=== PATIENT | female | born 1990 | race Caucasian/White ===

== ENCOUNTER 2018-05-30 11:16 | Outpatient (CLI) | END 2018-05-30 11:17 | disposition home or self-care (01) | LOC: LAB 11:16 | PROVIDERS: ATTEND Family Medicine | DX: F39 Unspecified mood [affective] disorder (principal) | CPT/HCPCS: 36415; 80053; 80061; 83036; 85025 ==

== ENCOUNTER 2018-07-28 08:59 | Emergency (ER) ==
[2018-07-28] MEDS ORDERED: TENIVAC IM ONE (09:05)
[2018-07-28 09:08] VITALS: BP 129/76; TEMP 97.9; BMI 24.4
--- NOTE | 2018-07-28 09:11 | ED.PDOC ---
General ED Provider: Dr. ALEKSANDER MADDEN Chief Complaint: Puncture Wound Stated Complaint: puncture wound of left foot Time Seen by Physician: 09:00 Information Source: Patient Exam Limitations: No limitations Primary Care Provider: TOSHA LASSITER Nursing and Triage Documentation Reviewed and Agree: Yes Does patient meet sepsis criteria?: No System Inflammatory Response Syndrome: Not Applicable Sepsis Protocol: For patient's 13 years and over: Temp is 96.8 and below OR 101 and greater Pulse >90 BPM Resp >20/minute Acutely Altered Mental Status Are patient's symptoms suggestive of a new infection, such as: -Pneumonia -Skin, Soft Tissue -Endocarditis -UTI -Bone, Joint Infection -Implantable Device -Acute Abdominal Infection -Wound Infection -Meningitis -Blood Stream Catheter Infection -Unknown Skin Complaint Exam - Laceration/Lower Ext. Complaint/Exam Location of Injury: Left, Foot (steped on a nail) Mechanism of Injury: Puncture Onset/Duration: 1 day ago stepped on nail nail went through tennis shoes Symptoms Are: Still present Initial Severity: Mild Current Severity: Mild Aggravating: None Alleviating: None Associated Signs and Symptoms: Denies: Fever, Chills, Erythema, Numbness, Tingling Soles of Feet Picture: 1 - 2mm wound see photos Differential Diagnoses: Closed Fracture Review of Systems - Review Of Systems Constitutional: Reports: No symptoms Eyes: Reports: No symptoms Ears, Nose, Mouth, Throat: Reports: No symptoms Respiratory: Reports: No symptoms Cardiac: Reports: No symptoms GI: Reports: No symptoms : Reports: No symptoms Musculoskeletal: Reports: No symptoms Skin: Reports: Other (puncture wound left foot 2 mm) Neurological: Reports: No symptoms Endocrine: Reports: No symptoms Hematologic/Lymphatic: Reports: No symptoms All Other Systems: Reviewed and Negative Past Medical History - Past Medical History Previously Healthy: Yes Endocrine: Reports: None Cardiovascular: Reports: None Respiratory: Reports: None Hematological: Reports: None Gastrointestinal: Reports: None Genitourinary: Reports: None Neuro/Psych: Reports: None Musculoskeletal: Reports: None Cancer: Reports: None Last Menstrual Period: Today - Surgical History General Surgical History: Reports: None - Family History Family History: Reports: None - Social History Smoking Status: Current every day smoker Hx Substance Use: No Alcohol Screening: None - Immunizations Tetanus Shot up to Date: No Physical Exam - Physical Exam Appearance: Well-appearing, No pain distress, Well-nourished Eyes: SOMMER, EOMI, Conjunctiva clear ENT: Ears normal, Nose normal, Oropharynx normal Respiratory: Airway patent, Breath sounds clear, Breath sounds equal, Respirations nonlabored Cardiovascular: RRR, Pulses normal, No rub, No murmur GI/: Soft, Nontender, No masses, Bowel sounds normal, No Organomegaly Musculoskeletal: Normal strength, ROM intact, No edema, No calf tenderness Skin: Warm, Dry (puncture wound left foot) Neurological: Sensation intact, Motor intact, Reflexes intact, Cranial nerves intact, Alert, Oriented Psychiatric: Affect appropriate, Mood appropriate Critical Care Note - Critical Care Note Total Time (mins): 0 Course - Course Orders, Labs, Meds: Orders Category Date Time Status Tetanus and Diphtheria Tox/Pf [Tenivac] MEDS 07/28/18 09:05 Once 0.5 ml IM .ONCE ONE Medications Discontinued Medications Generic Name Dose Route Start Last Admin Trade Name Freq PRN Reason Stop Dose Admin Tetanus/Diphtheria Toxoids Adsorbed 0.5 ml 07/28/18 09:05 Tenivac IM 07/28/18 09:06 .ONCE ONE Vital Signs: Temp Pulse Resp BP Pulse Ox 07/28/18 08:59 97.9 F 77 16 129/76 98 Departure - Departure Time of Disposition: 09:12 Disposition: HOME SELF-CARE Discharge Problem: Wound Puncture wound of left foot Qualifiers: Encounter type: initial encounter Qualified Code(s): S91.332A - Puncture wound without foreign body, left foot, initial encounter Instructions: Puncture Wound (ED) Condition: Good Pt referred to PMD for follow-up: Yes IPMP verified?: No Additional Instructions: Please call your Family Physician as soon as possible to schedule a follow-up appointment. Prescriptions: Levofloxacin [Levaquin] 500 mg PO DAILY #5 tablet Allergies/Adverse Reactions: Allergies amoxicillin Allergy (Unverified 03/09/18 14:49) hives, anaphalaxia laytex Allergy (Intermediate, Uncoded 03/09/18 14:49) rash Home Medications: Ambulatory Orders Levofloxacin [Levaquin] 500 mg PO DAILY #5 tablet 07/28/18 Disposition Discussed With: Patient
== END 2018-07-28 10:14 | disposition home or self-care (01) ==
LOC: ED 08:59
DX: S91.332A Puncture wound without foreign body, left foot, initial encounter (principal); W45.0XXA Nail entering through skin, initial encounter; F17.210 Nicotine dependence, cigarettes, uncomplicated
CPT/HCPCS: 90471; 90714; 99283

== ENCOUNTER 2018-08-04 14:00 | Outpatient (RCR) ==
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
--- NOTE | 2018-07-24 12:40 | RS.OPPTDN ---
Subjective Date of Note: 07/24/18 Visit #: 2 Number of visits approved by Insurance: pending Date of Evaluation: 07/13/18 Payer Source: Medicaid Treatment Diagnosis: low back pain with radiculopathy, muscle weakness, Current Subjective/complaints:: Patient reports pain in lumbar spine 8/10 and no pain in right lower extremity *Precautions: h/o lumbar fusion - Treatment Modality: Electrical Stim Unattended Parameters/Method Applied: IFC 14 to 18 ma Treatment Area: lumbar spine Patient Position: Prone - Treatment Comments: moist heat concurrent e-stim to lumbar region - Heat/Cryotherapy Treatment: Hot Pack Interventions - Exercise/Activities/Manual Therapy Exercises/Activities: pt performed prone lying, prone on elbows, pelvic tilt, hamstring stretch, piriformis stretch. Total minutes of Exercise: 30 Manual Therapy: n/a HOME EXERCISE PROGRAM: pt given written HEP including: pelvic tilt, hamstring stretch, piriformis stretch, prone, prone on elbows. - Charges Timed Code Treatment Minutes: 30 Total Treatment Time: 58 Procedures billed for this date of service:: HP, E-stim unattended, ex x2 Assessment: Patient with decrease to radicular pain in R LE and with decreased LBP to 5/10 post tx Patient demonstrates compliance with HEP?: No (Patient reports not completing HEP.) Short Term Goals Goal #1: pt independent with initial HEP Goal to be met by: 08/04/18 Goal #2: Decrease pain in lumbar spine < 7/10 Goal to be met by: 08/04/18 Goal #3: Improve flexibility B hamstring and piriformis WFL's Goal to be met by: 08/04/18 Goal #4: Improve lumbar ROM WFL's Goal to be met by: 08/04/18 Senior Care Goals Goal #1: pt able to perform normal daily activities with less pain Goal to be met by: 08/18/18 Goal #2: Decreased reports of radicular pain into RLE Goal to be met by: 08/18/18 Goal #3: pt able to sleep >4 hours uninterrupted from pain Goal to be met by: 08/18/18 Plan Dates of Senior Care Goals: 08/18/18 Expiration date of current Insurance Approval:: 08/18/18 PLAN: continue with POC
--- NOTE | 2018-07-27 16:03 | RS.OPPTDN ---
Subjective Date of Note: 07/27/18 Visit #: 3 Number of visits approved by Insurance: 2-3x4 [employer] Date of Evaluation: 07/13/18 Payer Source: Medicaid Treatment Diagnosis: low back pain with radiculopathy, muscle weakness, Current Subjective/complaints:: Patient says she is hurting more after she has been at work all day. Does say treatment at last appt helped a lot and is only hurting at her coccyx. Denies any radicular pain. *Precautions: h/o lumbar fusion - Treatment Modality: Electrical Stim Unattended Parameters/Method Applied: IFC @ 14-17 max 20 mins to the lower lumbar paraspinals and superior gluts - Heat/Cryotherapy Treatment: Hot Pack Comments:: with estim Interventions - Exercise/Activities/Manual Therapy Exercises/Activities: pt performed prone lying, prone on elbows, alternate LE extension x 5. Supine: passive stretching for piriformis, figure 4, hamstring , lower trunk rotation. Began isometric hip add/abd in hooklying 2x5. Reviewed HEP and discussed proper body mechanics when able to perform while at work. Instructed in standing trunk extension throughout the day as possible. Total minutes of Exercise: 19 Manual Therapy: n/a HOME EXERCISE PROGRAM: pt given written HEP including: pelvic tilt, hamstring stretch, piriformis stretch, prone, prone on elbows. 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 She is experiencing pain at the coccyx region and just at the lower lumbar spine. She appears to be responding to treatment of modalities and therex performing them all today correctly and without difficulty. Only mild discomfort describing as stiffness at the L spine during extension exercises.She should benefit from further treatment of modalities and trunk stability/assisted stretching. Short Term Goals Goal #1: pt independent with initial HEP Goal to be met by: 08/04/18 Goal #2: Decrease pain in lumbar spine < 7/10 Goal to be met by: 08/04/18 Goal #3: Improve flexibility B hamstring and piriformis WFL's Goal to be met by: 08/04/18 Goal #4: Improve lumbar ROM WFL's Goal to be met by: 08/04/18 Medical Imaging Director Goals Goal #1: pt able to perform normal daily activities with less pain Goal to be met by: 08/18/18 Goal #2: Decreased reports of radicular pain into RLE Goal to be met by: 08/18/18 Goal #3: pt able to sleep >4 hours uninterrupted from pain Goal to be met by: 08/18/18 Plan Dates of Medical Imaging Director Goals: 08/18/18 Expiration date of current Insurance Approval:: 08/18/18 PLAN: Continue BIW to decrease back pain and continue to localize symptoms from the R LE
--- NOTE | 2018-08-01 15:04 | RS.OPPTDN ---
Subjective Date of Note: 08/01/18 Visit #: 4 Number of visits approved by Insurance: pending, 6-8 Date of Evaluation: 07/13/18 Payer Source: Medicaid Treatment Diagnosis: low back pain with radiculopathy, muscle weakness, Current Subjective/complaints:: Patient says previous treatment did help, but she just came from work again so her pain is elevated. She says it continues to be across the low back and no pain into the LEs. *Precautions: h/o lumbar fusion - Treatment Modality: Electrical Stim Unattended Parameters/Method Applied: IFC @ 19 ma x 20 mins to lumbar paraspinals Patient Position: Prone (with estim) - Heat/Cryotherapy Treatment: Hot Pack Interventions - Exercise/Activities/Manual Therapy Exercises/Activities: pt performed prone lying during modality treatment. She receives passive stretching of HS, Piriformis, figure 4, lower trunk rotation, bilaterally x 3 reps ea. Trunk stability: isometric hip abd/add/flexion/ all x 10 reps. Bridging x 5. Reviewed HeP and proper body and postural mechanics/ techniques. Total minutes of Exercise: 17 Manual Therapy: n/a HOME EXERCISE PROGRAM: pt given written HEP including: pelvic tilt, hamstring stretch, piriformis stretch, prone, prone on elbows. - Charges Timed Code Treatment Minutes: 17 Total Treatment Time: 37 Procedures billed for this date of service:: hp, estim (un), ex Assessment: Patient responding to treatment experiencing less back pain and mm guarding in general, but work duties do affect her pain and it was heightened today as a result from just leaving her shift. She demo increased tightness to the L LE today during all stretches. Trunk stability causes mild discomfort, but not enough to discontinue. She should continue to improve with modalities and progressive trunk stability. Patient Education: Education of diagnosis, Body/Joint mechanics, Home Exercise Program, Education of Plan of Care Patient demonstrates compliance with HEP?: Yes Short Term Goals Goal #1: pt independent with initial HEP Goal to be met by: 08/04/18 Progress towards Goal:: Progressing Goal #2: Decrease pain in lumbar spine < 7/10 Goal to be met by: 08/04/18 Goal #3: Improve flexibility B hamstring and piriformis WFL's Goal to be met by: 08/04/18 Goal #4: Improve lumbar ROM WFL's Goal to be met by: 08/04/18 Chief Librarian Branch Goals Goal #1: pt able to perform normal daily activities with less pain Goal to be met by: 08/18/18 Goal #2: Decreased reports of radicular pain into RLE Goal to be met by: 08/18/18 Progress towards goal: Progressing Goal #3: pt able to sleep >4 hours uninterrupted from pain Goal to be met by: 08/18/18 Plan Dates of Chief Librarian Branch Goals: 08/18/18 Expiration date of current Insurance Approval:: 08/18/18 PLAN: Patient to continue BIW to decrease back pain and maintain no radicular symptoms.
--- NOTE | 2018-08-03 14:50 | RS.CXNS ---
Date of scheduled appointment: 08/03/18 Type: Rescheduled
--- NOTE | 2018-08-04 15:30 | RS.OPPTDN ---
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 Reports back pain is across the low back and down the L buttock. *Precautions: h/o lumbar fusion - Treatment Modality: Electrical Stim Unattended Parameters/Method Applied: hivolt 2 large pads to the L lumbar paraspinals and L buttock, 2 to the R lumbar paraspinals @ 135-140 pk volts x 20 mins Patient Position: Prone - Heat/Cryotherapy Treatment: Cryotherapy (with estim to low back and L hip) Interventions - Exercise/Activities/Manual Therapy Exercises/Activities: pt performed prone lying during modality treatment. She lays EITAN 3 mins. Supine for passive bilateral LE stretching: SKTC, Piriformis , Figure 4, HS, and lower trunk rotation x 4. Trunk stability: isometric hip abd/add/flexion/ all x 10 reps. Bridging 2 x 5. Reviewed HeP and proper body and postural mechanics/techniques. Instructed patient in bridging and pillow squeezes. Total minutes of Exercise: 16 Manual Therapy: n/a HOME EXERCISE PROGRAM: pt given written HEP including: pelvic tilt, hamstring stretch, piriformis stretch, prone, prone on elbows. - Charges Timed Code Treatment Minutes: 16 Total Treatment Time: 36 Procedures billed for this date of service:: cp, estim (un), ex Assessment: Patient attends with elevated pain to the low back and extending into the L hip and glut. Decreased pain admitted following modalities today. She demo increased tightness and mm guarding to the L during stretching today and had increased discomfort during bridging. Advanced HeP today. Patient Education: Body/Joint mechanics, Home Exercise Program, Education of Plan of Care Patient demonstrates compliance with HEP?: Yes Short Term Goals Goal #1: pt independent with initial HEP Goal to be met by: 08/04/18 Progress towards Goal:: Progressing Goal #2: Decrease pain in lumbar spine < 7/10 Goal to be met by: 08/04/18 Goal #3: Improve flexibility B hamstring and piriformis WFL's Goal to be met by: 08/04/18 Goal #4: Improve lumbar ROM WFL's Goal to be met by: 08/04/18 Blueprint Trimmer Goals Goal #1: pt able to perform normal daily activities with less pain Goal to be met by: 08/18/18 Goal #2: Decreased reports of radicular pain into RLE Goal to be met by: 08/18/18 Progress towards goal: Progressing Goal #3: pt able to sleep >4 hours uninterrupted from pain Goal to be met by: 08/18/18 Plan Dates of Mcfp Goals: 08/18/18 Expiration date of current Insurance Approval:: 08/18/18 PLAN: Continue BIW for modalities and therex for trunk strengthening.
== END 2018-08-04 23:59 ==
PROVIDERS: ATTEND Pain Medicine Interventional Pain Medicine
DX: M54.17 Radiculopathy, lumbosacral region (principal)

== ENCOUNTER 2018-08-24 11:45 | Outpatient (CLI) | END 2018-08-24 11:46 | disposition home or self-care (01) | LOC: RHC-LAB 11:45 → FCC-LAB 11:46 | PROVIDERS: ATTEND Family Medicine | DX: E55.9 Vitamin D deficiency, unspecified (principal) | CPT/HCPCS: 36415; 82306 ==